=== PATIENT | female | born 1950 | race Caucasian/White ===

== ENCOUNTER 2019-06-09 17:48 | Emergency (ER) | payer MEDICARE, OTHER ==
[~2019-06-09] VITALS: Ht 154.9 cm; Wt 95.3 kg
[~2019-06-09 17:48] MED LIST: ASPIR 8181 MG PO; LISINOPRIL-HCT1 EAC1 PO; OMEPRAZOLE40 MG PO
--- OUTSIDE RECORDS SUMMARY | 2019-06-09 17:52 | XMS REPORT | Summary of Care ---
Author Author Jayda Campos M.A. Unknown Address Unknown Phone Unavailable Care Team Providers Care [employer] Clerk Name Role Phone PASTOR Damon, EVELYN Unavailable Unavailable TERRY Abreu, RUBEN Unavailable Unavailable SHANICE Chilel.OAngela, ANNA Unavailable Unavailable Andres Winters, Jayda Unavailable Unavailable PAUL N.P., MARIO Unavailable Unavailable [place]NA [place], FROILAN HALL Unavailable Unavailable SHANICE HICKEY AR, ANNA Unavailable [facility]available [facility]UL [facility], MARIO Roque Unavailable Unavailable SHOSHANA Abreu, FROILAN Ferguson Unavailable Unavailable Unavailable Functional Status Name Dates Details Functional status health issues are not documented Status: Name Dates Details Cognitive status health issues are not documented Status: Problems Name Dates Details Abnormal urine findings (791.9, R82.90) Status: Active Dermatitis (692.9, L30.9) Status: Active Acute upper respiratory infection (465.9, J06.9) Status: Active 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, Z01.419) Status: Active Visit for screening mammogram (V76.12, Z12.31) Status: Active Nevus, non-neoplastic (448.1, I78.1) Status: Active Menopausal and postmenopausal disorder (627.9, N95.9) Status: Active Flu vaccine need (V04.81, Z23) Status: Active Need for Tdap vaccination (V06.1, Z23) Status: Active Allergic rhinitis due to pollen (477.0, J30.1) Status: Active Cervical spine pain (723.1, M54.2) Status: Active Colon cancer screening (V76.51, Z12.11) Status: Active Dysphagia (787.20, R13.10) Status: Active Post-menopause (V49.81, Z78.0) Status: Active Depression screening (V79.0, Z13.31) Status: Active At moderate risk for fall (V15.88, Z91.81) Status: Active Encounter for mini-mental status examination Status: Active Right knee pain, unspecified chronicity (719.46, M25.561) Status: Active Localized primary osteoarthritis of lower leg, right (715.16, M17.11) Status: Active Left ankle sprain (845.00, S93.402A) Status: Active Closed fracture of left ankle with delayed healing, subsequent encounter (V54.19, S82.892G) Status: Active Closed trimalleolar fracture of left ankle, initial encounter (824.6, S82.852A) Status: Active Post surgical complication (998.9, T81.9XXA) Status: Active Unsteady gait (781.2, R26.81) Status: Active Ankle fracture, left, closed, initial encounter (824.8, S82.892A) Status: Active Low back pain (724.2, M54.5) Status: Active Cough (786.2, R05) Status: Active Closed left ankle fracture (824.8, S82.892A) Status: Active Acute bronchitis (466.0, J20.9) Status: Active Need for vaccination with 13-polyvalent pneumococcal conjugate vaccine (V03.82, Z23) Status: Active Obesity, Class III, BMI 40-49.9 (morbid obesity) (278.01, E66.01) Status: Active Need for hepatitis C screening test (V73.89, Z11.59) Status: Active Screening for breast cancer (V76.10, Z12.39) Status: Active Encounter for medication refill (V68.1, Z76.0) Status: Active Essential (primary) hypertension (401.9, I10) Status: Active Acid reflux disease (530.81, K21.9) Status: Active Allergic rhinitis, seasonal (477.9, J30.2) Status: Active Multiple nevi (216.9, D22.9) Status: Active Atypical mole (216.9, D22.9) Status: Active Need for shingles vaccine (V04.89, Z23) Status: Active Mixed hyperlipidemia (272.2, E78.2) Status: Active Medications Name Dates Details Lisinopril-hydroCHLOROthiazide 20-25 MG Oral Tablet TAKE 1 TABLET DAILY Quantity: 90 PAUL N.P., MARIO * Start : 22-Aug-2014 Active Omeprazole 40 MG Oral Capsule Delayed Release TAKE 1 CAPSULE DAILY * Quantity: 90 Refills: 1 PAUL N.P., MARIO * Start : 12-Jun-2016 Active Voltaren 1 % Transdermal Gel APPLY TO LOWER EXTREMITIES, 4 GM OF GEL TO AFFECTED AREA 4 TIMES DAILY. DO NOT APPLY MORE THAN 16 GM DAILY TO ANY ONE AFFECTED JOINT. * Quantity: 5 Refills: 3 RUBEN STEWART M.D. * Start : 02-Jan-2017 Active 100 GM Tube Wheelchair USE DIRECTED. DX: S82.892G * Quantity: 1 Refills: 0 BAUMANN P.A., EVELYN * Start : 11-Jun-2017 Active Diclofenac Sodium 1 % Transdermal Gel APPLY SPARINGLY TO AFFECTED AREA(S) ONCE DAILY * Quantity: 1 Refills: 2 YEH D.O., MILLICENT-FRANCESCA * Start : 10-Jun-2018 Active 100 GM Tube Azelastine HCl - 0.1 % Nasal Solution USE 1 TO 2 SPRAYS IN EACH NOSTRIL TWICE DAILY NEEDED. * Quantity: 1 Refills: 5 YEH D.O., MILLICENT-FRANCESCA * Start : 10-Jun-2018 Active 30 ML Bottle Montelukast Sodium 10 MG Oral Tablet TAKE 1 TABLET BY MOUTH EVERY DAY * Quantity: 90 Refills: 1 PAUL N.P., MARIO * Start : 29-Jun-2018 Active Allergies and Adverse Reactions Name Dates Details No Known Allergies (Allergy) Status: Active Past Medical History Name Dates Details History of Depression screening (V79.0, Z13.31) Status: Resolved History of essential hypertension (V12.59, Z86.79) Status: Resolved History of gastroesophageal reflux (GERD) (V12.79, Z87.19) Status: Resolved History of low back pain (V13.59, Z87.39) Status: Resolved Procedures Procedure Dates Details MA Digital Mammo Screening Oscar [id number] Date: 03-Mar-2019 History of Heart Valve Repair Completed Immunization Name Dates Details Fluzone Preservative Free 0.5 ML [facility] Lot #: [id number] on: 30-May-2015 Tdap (Adacel) Lot #: [id number] on: 15-Jun-2015 Fluzone Preservative Free 0.5 ML [facility] Lot #: [id number] on: 24-May-2016 Family History Name Dates Details Family history of Myocardial infarction (410.90, I21.9) Status: Active Name Dates Details Family history of multiple sclerosis (V17.2, Z82.0) Status: Active Social History Name Dates Details - Status: Name Dates Details Never smoker Vital Signs Date Test Result Details 4-Maq-581250:13 BP Systolic 127 mm[Hg] Status: Comments: Location: LUE; Position: Sitting BP Diastolic 74 mm[Hg] Status: Comments: Location: LUE; Position: Sitting Height 61 in Status: Weight 212.4375 lb Status: Body Mass Index Calculated 40.14 kg/m2 Status: Body Surface Area Calculated 1.94 m2 Status: Temperature 97.8 f Status: Comments: Method: Temporal Heart Rate 64 /min Status: Respiration Rate 16 /min Status: Physical Findings 3 Status: Comments: PHQ-9 Adult Depression Screening Physical Findings 0 Status: Comments: Alcohol Screen - How many times in the past yr have you had 5 (for M) or 4 (for F) or 4 (for all > 65yrs) or more drinks in a day? Results Date Description Value Details 8-Vil-681667:01 [[facility]] LIPID PANEL CHOLESTEROL, TOTAL 186 mg/dl (Normal) Range: <200 HDL CHOLESTEROL 51 mg/dl (Normal) Range: >50 TRIGLYCERIDES 98 mg/dl (Normal) Range: <150 LDL-CHOLESTEROL 115 {MG/DL__CAL} (Above high threshold) Comments: Reference range: <100 Desirable range <100 mg/dL for primary prevention; <70 mg/dL for patients with CHD or diabetic patients with > or=2 CHD risk factors. LDL-C is now calculated using the Kirill calculation, which is a validated novel method providing better accuracy than the Friedewald equation in the estimation of LDL-C. Adryan GEORGE et al. JES. 2013;310(19): 6973-6212 (http:/ /education.[employer].com/faq/GHN477) CHOL/HDLC RATIO 3.6 {CALC} (Normal) Range: <5.0 NON HDL CHOLESTEROL 135 {MG/DL__CAL} (Above high threshold) Range: <130 Comments: For patients with diabetes plus 1 major ASCVD risk factor, treating to a non-HDL-C goal of <100 mg/dL (LDL-C of <70 mg/dL) is considered a therapeutic option. [[facility]] MAGNESIUM MAGNESIUM 1.7 mg/dl (Normal) Range: 1.5-2.5 [[facility]] CMP W/EGFR GLUCOSE 96 mg/dl (Normal) Range: 65-99 Comments: Fasting reference interval UREA NITROGEN (BUN) 14 mg/dl (Normal) Range: 7-25 CREATININE 0.86 mg/dl (Normal) Range: 0.50-0.99 Comments: For patients >49 years of age, the reference limitfor Creatinine is approximately 13% higher for peopleidentified as -[place]. eGFR NON- 69 {ML/MIN/1.7} (Normal) Range: > OR=60 eGFR 80 {ML/MIN/1.7} (Normal) Range: > OR=60 BUN/CREATININE RATIO NOT APPLICABLE {CALC} Range: 6-22 SODIUM 139 mmol/L (Normal) Range: 135-146 POTASSIUM 4.2 mmol/L (Normal) Range: 3.5-5.3 CHLORIDE 102 mmol/L (Normal) Range: 98-110 CARBON DIOXIDE 27 mmol/L (Normal) Range: 20-32 CALCIUM 9.7 mg/dl (Normal) Range: 8.6-10.4 PROTEIN, TOTAL 6.7 g/dl (Normal) Range: 6.1-8.1 ALBUMIN 4.0 g/dl (Normal) Range: 3.6-5.1 GLOBULIN 2.7 {G/DL__CALC} (Normal) Range: 1.9-3.7 ALBUMIN/GLOBULIN RATIO 1.5 {CALC} (Normal) Range: 1.0-2.5 BILIRUBIN, TOTAL 0.4 mg/dl (Normal) Range: 0.2-1.2 ALKALINE PHSPHATASE 86 u/l (Normal) Range: 33-130 AST 16 u/l (Normal) Range: 10-35 ALT 11 u/l (Normal) Range: 6-29 [[facility]] URINALYSIS, COMPLETE W/REFLEX TO CULTURE COLOR YELLOW (Normal) Range: YELLOW APPEARANCE CLEAR (Normal) Range: CLEAR SPECIFIC GRAVITY 1.016 (Normal) Range: 1.001-1.035 PH 6.0 (Normal) Range: 5.0-8.0 GLUCOSE NEGATIVE (Normal) Range: NEGATIVE BILIRUBIN NEGATIVE (Normal) Range: NEGATIVE KETONES NEGATIVE (Normal) Range: NEGATIVE OCCULT BLOOD NEGATIVE (Normal) Range: NEGATIVE PROTEIN NEGATIVE (Normal) Range: NEGATIVE NITRITE NEGATIVE (Normal) Range: NEGATIVE LEUKOCYTE ESTERASE 2+ (Abnormal) Range: NEGATIVE WBC 10-20 {/HPF} (Abnormal) Range: < OR=5 RBC NONE SEEN {/HPF} (Normal) Range: < OR=2 SQUAMOUS EPITHELIAL CELLS 6-10 {/HPF} (Abnormal) Range: < OR=5 BACTERIA FEW {/HPF} (Abnormal) Range: NONE SEEN HYALINE CAST NONE SEEN {/LPF} (Normal) Range: NONE SEEN : [Q] REFLEXIVE URINE CULTURE REFLEXIVE URINE CULTURE CULTURE INDICATED - RESULTS TO FOLLOW :01 [[facility]] CBC (INCLUDES DIFF/PLT) WHITE BLOOD CELL COUNT 6.5 {Thousand/u} (Normal) Range: 3.8-10.8 RED BLOOD CELL COUNT 4.32 {Million/uL} (Normal) Range: 3.80-5.10 HEMAGLOBIN 11.5 g/dl (Below low threshold) Range: 11.7-15.5 HEMATOCRIT 35.7 % (Normal) Range: 35.0-45.0 MCV 82.6 fL (Normal) Range: 80.0-100.0 MCH 26.6 pg (Below low threshold) Range: 27.0-33.0 MCHC 32.2 g/dl (Normal) Range: 32.0-36.0 RDW 13.8 % (Normal) Range: 11.0-15.0 PLATELET COUNT 279 {Thousand/u} (Normal) Range: 140-400 MPV 10.7 fL (Normal) Range: 7.5-12.5 ABSOLUTE NEUTROPHILS 4316 {cells/uL} (Normal) Range: 0862-7179 ABSOLUTE LYMPHOCYTES 1489 {cells/uL} (Normal) Range: 850-3900 ABSOLUTE MONOCYTES 410 {cells/uL} (Normal) Range: 200-950 ABSOLUTE EOSINOPHILS 234 {cells/uL} (Normal) Range: 15-500 ABSOLUTE BASOPHILS 52 {cells/uL} (Normal) Range: 0-200 NEUTROPHILS 66.4 % (Normal) LYMPHOCYTES 22.9 % (Normal) MONOCYTES 6.3 % (Normal) EOSINOPHILS 3.6 % (Normal) BASOPHILS 0.8 % (Normal) : [[facility]] HEPATITIS C ANTIBODY HEPATITIS C ANTIBODY NON-REACTIVE (Normal) Range: NON-REACTIVE SIGNAL TO CUT-OFF 0.02 (Normal) Range: <1.00 Comments: HCV antibody was non-reactive. There is no laboratory evidence of HCV infection. In most cases, no further action is required. However,if recent HCV exposure is suspected, a test for HCV RNA(test code 25184) is suggested. For additional information please refer tohttp://education.[employer]/faq/RJN12j4(This link is being provided for informational/educational purposes only.) : [[facility]] TSH, 3RD GENERATION W/REFLEX TO FT4 TSH, 3RD GENERATION W/REFLEX TO FT4 1.32 {MIU/L} (Normal) Range: 0.40-4.50 : [[facility]] HEMOGLOBIN A1c HEMOGLOBIN A1c 5.4 {%_of_total} (Normal) Range: <5.7 Comments: For the purpose of screening for the presence ofdiabetes: <5.7% Consistent with the absence of diabetes5.7-6.4% Consistent with increased risk for diabetes (prediabetes)> or=6.5% Consistent with diabetes This assay result is consistent with a decreased riskof diabetes. Currently, no consensus exists regarding use ofhemoglobin A1c for diagnosis of diabetes in children. According to [place] Diabetes Association (ADA)guidelines, hemoglobin A1c <7.0% represents optimalcontrol in non- diabetic patients. Differentmetrics may apply to specific patient populations. Standards of Medical Care in Diabetes(ADA). : [[facility]] CULTURE, URINE, ROUTINE Comments: REPORT COMMENT:FASTING:YES CULTURE Comments: CULTURE, URINE, ROUTINE MICRO NUMBER: [id number] TEST STATUS: FINAL SPECIMEN SOURCE: URINE SPECIMEN QUALITY: ADEQUATE RESULT: No Growth Plan of Care Name Dates Details Planned Observations Planned Goals not documented Planned Encounters Appointment; MAXIMO SHARP M.D. On: 28-May-2019 15:00 Instructions Name Dates Details Instructions not documented Encounters Appointment; EVELYN BAUMANN P.A. Encounter Diagnosis: Problem not documented On: 30-May-2017 15:00 Appointment; EVELYN BAUMANN P.A. Encounter Diagnosis: Problem not documented On: 03-Jun-2017 10:00 Appointment; EVELYN BAUMANN P.A. Encounter Diagnosis: Problem not documented On: 10-Jun-2017 10:30 Appointment; CLAUDETTE GARCIA M.D. Encounter Diagnosis: Problem not documented On: 13-Jun-2017 14:45 Appointment; CLAUDETTE GARCIA M.D. Encounter Diagnosis: Problem not documented On: 16-Jun-2017 19:00 Appointment; CLAUDETTE GARCIA M.D. Encounter Diagnosis: Problem not documented On: 02-Jul-2017 15:45 Appointment; CLAUDETTE GARCIA M.D. Encounter Diagnosis: Problem not documented On: 01-Aug-2017 8:30 Appointment; CLAUDETTE GARCIA M.D. Encounter Diagnosis: Problem not documented On: 15-Aug-2017 9:30 Appointment; CLAUDETTE GARCIA M.D. Encounter Diagnosis: Problem not documented On: 20-Aug-2017 14:30 Appointment; CLAUDETTE GARCIA M.D. Encounter Diagnosis: Problem not documented On: 24-Sep-2017 15:45 Appointment; EVELYN BAUMANN P.A. Encounter Diagnosis: Problem not documented On: 20-Oct-2017 10:30 Appointment; EVELYN BAUMANN P.A. Encounter Diagnosis: Problem not documented On: 10-Nov-2017 14:00 Appointment; CLAUDETTE GARCIA M.D. Encounter Diagnosis: Problem not documented On: 19-Nov-2017 9:15 Appointment; CLAUDETTE GARCIA M.D. Encounter Diagnosis: Problem not documented On: 26-Nov-2017 10:15 Appointment; EVELYN BAUMANN P.A. Encounter Diagnosis: Problem not documented On: 06-May-2018 10:30 Appointment; ANNA PRASAD D.O. Encounter Diagnosis: Problem not documented On: 10-Jun-2018 14:45 Appointment; ANNA PRASAD D.O. Encounter Diagnosis: Problem not documented On: 29-Jun-2018 13:00 Appointment; MARIO MILLER NP Encounter Diagnosis: Problem not documented On: 03-Mar-2019 10:45
--- OUTSIDE RECORDS SUMMARY | 2019-06-09 17:52 | XMS REPORT ---
[facility] Address Unknown Phone Unavailable Care Team Providers Care Car Customizer Name Role Phone Chaya LOYD Unavailable Unavailable Problems This patient has no known problems. Allergies, Adverse Reactions, Alerts This patient has no known allergies or adverse reactions. Medications This patient has no known medications. Results Test Description Test Time Test Comments Text Results Atomic Results Result Comments CT CERVICAL SPINE WO [place] [id number] Patient Name: LOGAN CONTRERAS MR #: [id number] : 1950 Age/Sex: 66/F Req #: [id number] Adm Physician: Ordered by: KEVIN LOYD MD Report #: [id number] Location: ER Room/Bed: Procedure: [id number] CT/CT CERVICAL SPINE WO Exam Date: 06/16/17 Exam Time: 2357 REPORT STATUS: Signed History: Syncope Comparison studies: None Technique: Axial images were obtained from the brain and cervical spine. Coronal and sagittal images reconstructed from the axial data. Intravenous contrast: None Findings: Head CT: Scalp/skull: Incidental 3 mm calcified cyst in the left parietal scalp. Otherwise, no abnormalities. No fractures, blastic or lytic lesions. Brain sulci: Appropriate for age. Ventricles: Normal in size and configuration. No hydrocephalus. Extra-axial spaces: No masses. No fluid collections. Parenchyma: Subtle hypodensities in the supratentorial white matter are small vessel ischemic changes. No masses, hemorrhage, acute or chronic cortical vascular insults. Sellar/suprasellar region: No abnormalities. Craniocervical junction: Patent foramen magnum. No Chiari one malformation. Cervical spine CT: Airway: Patent. Fractures: None. Soft tissues: No gross abnormalities. Atlantoaxial articulation: Intact. Alignment: Straightening of the usual lordosis is probably positional. No scoliosis. Cervicomedullary junction: No abnormalities. Patent foramen magnum. Vertebrae: No infection or neoplasm. Degenerative changes: Mildly degenerated discs from C5 to T2. Foraminal stenosis, mild left at C4-5 due to facet and uncoarthrosis. Facet arthrosis on the right at C5-6 without foraminal stenosis. Patent spinal canal. Incidental findings: 9 mm calcified nodule in the right lobe of the thyroid, 2.2 cm noncalcified mass on the left. IMPRESSION: Head CT: No acute abnormalities. Mild supratentorial white matter small vessel ischemic changes. Cervical spine CT: 1. No acute abnormalities. 2. Cannot adequately evaluate for ligament, spinal cord and or vascular abnormalities. 3. Degenerative changes as described. 4. Incidental 2.2 cm noncalcified mass in the left lobe of the thyroid. 9 mm calcified nodule on the right. Recommend nonemergent thyroid ultrasound for further evaluation. Signed by: Dr. Shiva Rosario M.D. on 06/16/2017 12:39 AM Dictated By: SHIVA ROSARIO MD, MD Transcribed By: CRUZ on 06/16/1738 COPY TO: KEVIN LOYD MD CT BRAIN WO [place] [address] Patient Name: LOGAN CONTRERAS MR #: [id number] : 1950 Age/Sex: 66/F Req #: [id number] Adm Physician: Ordered by: KEVIN LOYD MD Report #: [id number] Location: ER Room/Bed: Procedure: [id number] CT/CT BRAIN WO Exam Date: 06/16/17 Exam Time: 2357 REPORT STATUS: Signed History: Syncope Comparison studies: None Technique: Axial images were obtained from the brain and cervical spine. Coronal and sagittal images reconstructed from the axial data. Intravenous contrast: None Findings: Head CT: Scalp/skull: Incidental 3 mm calcified cyst in the left parietal scalp. Otherwise, no abnormalities. No fractures, blastic or lytic lesions. Brain sulci: Appropriate for age. Ventricles: Normal in size and configuration. No hydrocephalus. Extra-axial spaces: No masses. No fluid collections. Parenchyma: Subtle hypodensities in the supratentorial white matter are small vessel ischemic changes. No masses, hemorrhage, acute or chronic cortical vascular insults. Sellar/suprasellar region: No abnormalities. Craniocervical junction: Patent foramen magnum. No Chiari one malformation. Cervical spine CT: Airway: Patent. Fractures: None. Soft tissues: No gross abnormalities. Atlantoaxial articulation: Intact. Alignment: Straightening of the usual lordosis is probably positional. No scoliosis. Cervicomedullary junction: No abnormalities. Patent foramen magnum. Vertebrae: No infection or neoplasm. Degenerative changes: Mildly degenerated discs from C5 to T2. Foraminal stenosis, mild left at C4-5 due to facet and uncoarthrosis. Facet arthrosis on the right at C5-6 without foraminal stenosis. Patent spinal shaw l. Incidental findings: 9 mm calcified nodule in the right lobe of the thyroid, 2.2 cm noncalcified mass on the left. IMPRESSION: Head CT: No acute abnormalities. Mild supratentorial white matter small vessel ischemic changes. Cervical spine CT: 1. No acute abnormalities. 2. Cannot adequately evaluate for ligament, spinal cord and or vascular abnormalities. 3. Degenerative changes as described. 4. Incidental 2.2 cm noncalcified mass in the left lobe of the thyroid. 9 mm calcified nodule on the right. Recommend nonemergent thyroid ultrasound for further evaluation. Signed by: Dr. Shiva Rosario M.D. on 06/16/2017 12:39 AM Dictated By: SHIVA ROSARIO MD, MD Transcribed By: CRUZ on 06/16/1738 COPY TO: KEVIN LOYD MD CHEST SINGLE (PORTABLE) [place] [address] Patient Name: LOGAN CONTRERAS MR #: [id number] : 1950 Age/Sex: 66/F Req #: [id number] Adm Physician: Ordered by: KEVIN LOYD MD Report #: [id number] Location: ER Room/Bed: Procedure: [id number] DX/CHEST SINGLE (PORTABLE) Exam Date: 06/16/17 Exam Time: 0002 REPORT STATUS: Signed CHEST SINGLE (PORTABLE), 06/15/2017 11:31 PM Technique: CHEST SINGLE (PORTABLE) Comparison: None available. Clinical history: Near syncope Findings: Unremarkable portable appearance of the heart, mediastinum, lungs and pleural spaces. Impression: 1. Lines/Tubes: None 2. No acute abnormality. Signed by: Dr Adarsh Fan MD on 06/16/2017 12:44 AM Dictated By: ADARSH FAN MD Transcribed By: CRUZ on 06/16/1743 COPY TO: KEVIN LOYD MD
[2019-06-09] MEDS ORDERED: MECLIZINE HCL 12.5 MG TAB PO ONE (18:15)
[2019-06-09] MEDS ORDERED: ASPIRIN 81 MG CHEW TAB PO ONE (18:15)
--- NOTE | 2019-06-09 18:54 | Diagnostic Imaging Report ---
Examination: Single AP view of the chest. COMPARISON: None. INDICATION: Hypertension DISCUSSION: Lines/tubes: None. Lungs: The lungs are well inflated and clear. No pneumonia or pulmonary edema. Pleura: No pleural effusion or pneumothorax. Heart and mediastinum: The heart and the mediastinum are unremarkable. Bones and soft tissues: No acute bony abnormalities. IMPRESSION: 1. No acute cardiopulmonary abnormalities. Signed by: Dr. Johnie Jacob M.D. on 06/09/2019 6:51 PM
--- NOTE | 2019-06-09 19:12 | Diagnostic Imaging Report ---
History: Headache, dizziness, high pressure Comparison studies: CT head 06/15/2017 Technique: Axial images were obtained from the skull base to the vertex. Coronal and sagittal reconstructions obtained from the axial data. Dose modulation, iterative reconstruction, and/or weight based adjustment of the mA/kV was utilized to reduce the radiation dose to as low as reasonably achievable. Findings: Scalp/skull: No abnormalities. No fractures, blastic or lytic lesions. Extra-axial spaces: No masses. No fluid collections. Brain sulci: Appropriate for age. Ventricles: Normal in size and configuration. No hydrocephalus. Parenchyma: Subtle hypodensities of the periventricular and deep white matter, most commonly seen with mild chronic microvascular ischemic changes. No masses, hemorrhage, acute or chronic cortical vascular insults. Sellar/suprasellar region: No abnormalities Craniocervical junction: Patent foramen magnum. No Chiari one malformation. IMPRESSION: No acute abnormalities . Signed by: DR Cale Mejias M.D. on 06/09/2019 7:09 PM
[2019-06-09 20:09] LABS: BASOPHILS # (AUTO) 0.1 (0.0-0.1); BASOPHILS % 0.8 % (0.0-1.0); EOSINOPHILS # (AUTO) 0.2 (0.0-0.4); HEMATOCRIT 39.3 % (34.2-44.1); HEMOGLOBIN 12.1 g/dL (12.0-16.0); LYMPHOCYTES # (AUTO) 1.7 (1.0-3.2); LYMPHOCYTES % 19.1 % (18.0-39.1); MEAN CORPUSCULAR HEMOGLOBIN 26.4 pg (28-32); MEAN CORPUSCULAR HGB CONC 30.8 g/dL (31-35); MEAN CORPUSCULAR VOLUME 85.6 fL (81-99); MONOCYTES # (AUTO) 0.5 (0.2-0.8); MONOCYTES % 5.9 % (4.4-11.3); NEUTROPHILS # (AUTO) 6.4 (2.1-6.9); NEUTROPHILS % 71.6 % (38.7-80.0); PLATELET COUNT 228 x10e3/uL (140-360); RED BLOOD COUNT 4.59 x10e6/uL (3.6-5.1); RED CELL DISTRIBUTION WIDTH 13.9 % (11.7-14.4)
[2019-06-09 20:26] LABS: ALANINE AMINOTRANSFERASE 11 IU/L (0-55); ALBUMIN 3.9 g/dL (3.5-5.0); ALBUMIN/GLOBULIN RATIO 1.1 (0.8-2.0); ALKALINE PHOSPHATASE 98 IU/L (40-150); ANION GAP 15.4 mmol/L (8-16); BLOOD UREA NITROGEN 15 mg/dL (7-26); BUN/CREATININE RATIO 16 (6-25); CALCIUM 9.6 mg/dL (8.4-10.2); CARBON DIOXIDE 23 mmol/L (22-29); CHLORIDE 100 mmol/L (98-107); CREATINE KINASE 72 IU/L (29-168); CREATININE, SERUM 0.94 mg/dL (0.57-1.11); EST GLOMERULAR FILTRATION RATE 59 ML/MIN (60-); GLUCOSE 104 mg/dL (74-118); MAGNESIUM 1.9 MG/DL (1.3-2.1); POTASSIUM 3.4 mmol/L (3.5-5.1); SODIUM 135 mmol/L (136-145)
[2019-06-09 20:41] LABS: BILIRUBIN,URINE NEGATIVE (NEGATIVE); CLARITY,URINE CLOUDY (CLEAR); COLOR,URINE YELLOW (YELLOW); KETONES,URINE NEGATIVE (NEGATIVE); LEUKOCYTE ESTERASE ,URINE SMALL (NEGATIVE); NITRITE,URINE NEGATIVE (NEGATIVE); PROTEIN,URINE DIPSTICK NEGATIVE (NEGATIVE); URINE UROBILINOGEN 1 mg/dL (0.2 - 1)
[2019-06-09 20:56] LABS: BACTERIA,URINE MANY /HPF; EPITHELIAL CELLS,URINE MANY /LPF
[2019-06-09 21:22] VITALS: BP 147/55
== END 2019-06-09 21:31 | disposition home or self-care (01) ==
LOC: ER 17:48
DX: R42 Dizziness and giddiness (principal); R11.0 Nausea; N30.90 Cystitis, unspecified without hematuria; I10 Essential (primary) hypertension; K21.9 Gastro-esophageal reflux disease without esophagitis
CPT/HCPCS: 36415; 70450; 71045; 80053; 81001; 82550; 82553; 83735; 83880; 84484; 85025; 93005; 99284; J8597

== ENCOUNTER 2022-01-07 10:33 | Observation (INO) | payer MEDICARE, OTHER ==
[~2022-01-07] VITALS: Ht 154.9 cm; Wt 95.3 kg
[2022-01-07] MEDS ORDERED: SODIUM CHLORIDE FLUSH 10 ML SYR IV PRN (11:00)
[2022-01-07] MEDS ORDERED: ASPIRIN 325 MG TAB PO ONE (11:00)
[2022-01-07 13:46] LABS: BASOPHILS # (AUTO) 0.1 (0.0-0.1); BASOPHILS % 0.7 % (0.0-1.0); EOSINOPHILS # (AUTO) 0.2 (0.0-0.4); EOSINOPHILS % 3.5 % (0.0-6.0); HEMATOCRIT 37.8 % (34.2-44.1); HEMOGLOBIN 11.7 g/dL (12.0-16.0); LYMPHOCYTES # (AUTO) 1.6 (1.0-3.2); LYMPHOCYTES % 23.2 % (18.0-39.1); MEAN CORPUSCULAR HEMOGLOBIN 27.5 pg (28-32); MEAN CORPUSCULAR VOLUME 88.9 fL (81-99); MONOCYTES # (AUTO) 0.4 (0.2-0.8); MONOCYTES % 6.3 % (4.4-11.3); NEUTROPHILS # (AUTO) 4.6 (2.1-6.9); NEUTROPHILS % 65.9 % (38.7-80.0); PLATELET COUNT 272 x10e3/uL (140-360); RED BLOOD COUNT 4.25 x10e6/uL (3.6-5.1); RED CELL DISTRIBUTION WIDTH 14.1 % (11.7-14.4)
[2022-01-07 13:56] LABS: INR 0.92; PROTHROMBIN TIME 13.2 seconds (11.9-14.5)
[2022-01-07 13:57] LABS: PARTIAL THROMBOPLASTIN TIME 29.2 seconds (23.8-35.5)
[2022-01-07 14:10] LABS: ALANINE AMINOTRANSFERASE 13 IU/L (0-55); ALBUMIN 3.6 g/dL (3.5-5.0); ALKALINE PHOSPHATASE 71 IU/L (40-150); ANION GAP 15.3 mmol/L (8-16); BLOOD UREA NITROGEN 13 mg/dL (7-26); BUN/CREATININE RATIO 16 (6-25); CALCIUM 9.4 mg/dL (8.4-10.2); CARBON DIOXIDE 25 mmol/L (22-29); CHLORIDE 104 mmol/L (98-107); CREATININE, SERUM 0.82 mg/dL (0.57-1.11); GLUCOSE 95 mg/dL (74-118); POTASSIUM 4.3 mmol/L (3.5-5.1); SODIUM 140 mmol/L (136-145)
[2022-01-07] MEDS ORDERED: ONDANSETRON HCL INJ 2MG/ML 2ML 2 MG/ML VIAL IV PRN (15:00)
[2022-01-07] MEDS ORDERED: ASPIRIN 81 MG CHEW TAB PO ONE (15:00)
[2022-01-07 17:19] VITALS: BP 138/60
[2022-01-07 17:32] VITALS: BP 138/60
[2022-01-07 20:00] VITALS: BP 145/61
[2022-01-07] MEDS ORDERED: MONTELUKAST SOD10 MG PO (20:02)
[2022-01-07] MEDS ORDERED: CENTRUM SILVER1 EAC5 PO (20:02)
[2022-01-07] MEDS ORDERED: CALCIUM CIT PO (20:02)
[2022-01-07] MEDS ORDERED: OMEGA-31000 MG PO (20:02)
[2022-01-07] MEDS ORDERED: CRESTOR5 MG PO (20:02)
[2022-01-07 20:09] LABS: CREATINE KINASE 59 IU/L (29-168)
[2022-01-07] MEDS ORDERED: ACETAMINOPHEN 325 MG TAB PO PRN (20:15)
[2022-01-07 21:00] VITALS: BP 145/61
[2022-01-07] MEDS ORDERED: SIMVASTATIN 20 MG TAB PO SCH (21:00)
[2022-01-08] VITALS: BP 136/48
[2022-01-08] MEDS ORDERED: TRAMADOL HCL 50 MG TAB PO PRN
[2022-01-08] MEDS: METOPROLOL TARTRATE 25 MG TAB PO SCH ×2 (00:45→08:39)
[2022-01-08] MEDS: LOSARTAN POTASSIUM 25 MG TAB PO SCH ×2 (00:45→08:39)
[2022-01-08] MEDS ORDERED: DOCUSATE SODIUM 100 MG CAP PO PRN (00:45)
[2022-01-08 02:33] LABS: AMPHETAMINES SCREEN,URINE NEGATIVE (NEGATIVE); BENZODIAZEPINES SCREEN,URINE NEGATIVE (NEGATIVE); PHENCYCLIDINE SCREEN,URINE NEGATIVE (NEGATIVE)
[2022-01-08 04:00] VITALS: BP 140/48
[2022-01-08 06:19] LABS: BASOPHILS # (AUTO) 0.1 (0.0-0.1); BASOPHILS % 0.9 % (0.0-1.0); EOSINOPHILS # (AUTO) 0.2 (0.0-0.4); EOSINOPHILS % 4.5 % (0.0-6.0); HEMATOCRIT 31.9 % (34.2-44.1); LYMPHOCYTES # (AUTO) 1.6 (1.0-3.2); LYMPHOCYTES % 30.7 % (18.0-39.1); MEAN CORPUSCULAR HEMOGLOBIN 27.2 pg (28-32); MEAN CORPUSCULAR HGB CONC 31.3 g/dL (31-35); MEAN CORPUSCULAR VOLUME 86.7 fL (81-99); MONOCYTES # (AUTO) 0.4 (0.2-0.8); MONOCYTES % 7.3 % (4.4-11.3); NEUTROPHILS % 56.4 % (38.7-80.0); PLATELET COUNT 239 x10e3/uL (140-360); RED BLOOD COUNT 3.68 x10e6/uL (3.6-5.1); RED CELL DISTRIBUTION WIDTH 13.8 % (11.7-14.4)
[2022-01-08 07:16] LABS: ANION GAP 13.2 mmol/L (8-16); CALCIUM 8.6 mg/dL (8.4-10.2); CREATININE, SERUM 0.77 mg/dL (0.57-1.11); POTASSIUM 4.2 mmol/L (3.5-5.1)
[2022-01-08 08:26] VITALS: BP 138/57
[2022-01-08] MEDS ORDERED: ASPIRIN 81 MG ENTERIC COATED PO SCH (09:00)
[2022-01-08] MEDS ORDERED: COZAAR25 MG PO (10:44)
[2022-01-08] MEDS ORDERED: LOPRESSOR25 MG PO (10:44)
[2022-01-08] MEDS ORDERED: ASPIRIN EC81 MG PO (10:44)
[2022-01-08] MEDS ORDERED: ONDANSETRON HCL 4 MG ORAL DISINTEGRATING TAB PO PRN (12:30)
[2022-01-08 12:52] VITALS: BP 133/63
== END 2022-01-08 15:11 | disposition home or self-care (01) ==
LOC: ER 10:55 → ERHOLD 15:02 → MED/SURG3 16:04
PROVIDERS: ADMIT Internal Medicine; ATTEND Internal Medicine
DX: I16.1 Hypertensive emergency (principal); E66.01 Morbid (severe) obesity due to excess calories; Z68.39 Body mass index [BMI] 39.0-39.9, adult; R07.89 Other chest pain; E78.5 Hyperlipidemia, unspecified; Z20.822 Contact with and (suspected) exposure to COVID-19
CPT/HCPCS: 36415 ×2; 70450; 71045; 80048; 80053; 80061; 80307; 82550 ×2; 82553 ×2; 83036; 84484 ×2; 85025 ×2; 85610; 85730; 93005; 93306; 94760; G0378 ×2; U0002

== ENCOUNTER → 2022-02-18 | Outpatient (CLI) | payer MEDICARE ==
[~2022-02-18] MED LIST changes: +AMLODIPINE BESYL5 MG PO; +ASPIRIN EC81 MG PO; +BUSPIRONE HCL5 MG PO; +CALCIUM CIT PO; +CENTRUM SILVER1 EAC5 PO; +COZAAR25 MG PO; +CRESTOR5 MG PO; +LOPRESSOR25 MG PO; +MONTELUKAST SOD10 MG PO; +OMEGA-31000 MG PO; +SERTRALINE HCL25 MG PO
[2022-02-18 14:27] LABS: BASOPHILS # (AUTO) 0.1 (0.0-0.1); BASOPHILS % 0.8 % (0.0-1.0); EOSINOPHILS # (AUTO) 0.3 (0.0-0.4); EOSINOPHILS % 3.9 % (0.0-6.0); HEMATOCRIT 36.9 % (34.2-44.1); HEMOGLOBIN 11.6 g/dL (12.0-16.0); LYMPHOCYTES # (AUTO) 1.6 (1.0-3.2); LYMPHOCYTES % 20.9 % (18.0-39.1); MEAN CORPUSCULAR HEMOGLOBIN 27.2 pg (28-32); MEAN CORPUSCULAR HGB CONC 31.4 g/dL (31-35); MEAN CORPUSCULAR VOLUME 86.4 fL (81-99); MONOCYTES # (AUTO) 0.6 (0.2-0.8); MONOCYTES % 8.2 % (4.4-11.3); NEUTROPHILS # (AUTO) 4.9 (2.1-6.9); NEUTROPHILS % 66.1 % (38.7-80.0); PLATELET COUNT 264 x10e3/uL (140-360); RED BLOOD COUNT 4.27 x10e6/uL (3.6-5.1); RED CELL DISTRIBUTION WIDTH 14.1 % (11.7-14.4)
[2022-02-18 14:44] LABS: INR 0.98; PROTHROMBIN TIME 13.9 seconds (11.9-14.5)
[2022-02-18 14:48] LABS: ALANINE AMINOTRANSFERASE 14 IU/L (0-55); ALBUMIN 3.9 g/dL (3.5-5.0); ALBUMIN/GLOBULIN RATIO 1.1 (0.8-2.0); ALKALINE PHOSPHATASE 66 IU/L (40-150); ANION GAP 15.1 mmol/L (8-16); BLOOD UREA NITROGEN 16 mg/dL (7-26); BUN/CREATININE RATIO 18 (6-25); CALCIUM 9.3 mg/dL (8.4-10.2); CARBON DIOXIDE 23 mmol/L (22-29); CHLORIDE 103 mmol/L (98-107); CHOL/HDL RATIO 3.3 (3.0-3.6); CHOLESTEROL 122 MD/DL (0-199); CREATININE, SERUM 0.89 mg/dL (0.57-1.11); GLUCOSE 97 mg/dL (74-118); HDL CHOLESTEROL 37 MG/DL (40-60); LDL CHOLESTEROL 72 MG/DL (60-130); POTASSIUM 4.1 mmol/L (3.5-5.1); SODIUM 137 mmol/L (136-145); TRIGLYCERIDES 65 MG/DL (0-149)
== END ==
LOC: LAB 14:00 → EDSTATUS 02-21 09:00
PROVIDERS: ATTEND Internal Medicine Cardiovascular Disease
DX: Z01.812 Encounter for preprocedural laboratory examination (principal); I25.10 Atherosclerotic heart disease of native coronary artery without angina pectoris
CPT/HCPCS: 0223U; 36415; 80053; 80061; 85025; 85610

== ENCOUNTER → 2022-03-07 | Day surgery (SDC) | payer MEDICARE ==
[2022-03-04 12:00] LABS: BASOPHILS # (AUTO) 0.1 (0.0-0.1); BASOPHILS % 0.9 % (0.0-1.0); EOSINOPHILS # (AUTO) 0.4 (0.0-0.4); EOSINOPHILS % 5.5 % (0.0-6.0); HEMATOCRIT 36.8 % (34.2-44.1); HEMOGLOBIN 11.4 g/dL (12.0-16.0); LYMPHOCYTES # (AUTO) 1.5 (1.0-3.2); LYMPHOCYTES % 21.6 % (18.0-39.1); MEAN CORPUSCULAR HEMOGLOBIN 27.1 pg (28-32); MEAN CORPUSCULAR VOLUME 87.4 fL (81-99); MONOCYTES # (AUTO) 0.5 (0.2-0.8); MONOCYTES % 7.8 % (4.4-11.3); NEUTROPHILS # (AUTO) 4.5 (2.1-6.9); NEUTROPHILS % 63.9 % (38.7-80.0); PLATELET COUNT 258 x10e3/uL (140-360); RED BLOOD COUNT 4.21 x10e6/uL (3.6-5.1); RED CELL DISTRIBUTION WIDTH 13.8 % (11.7-14.4)
[2022-03-04 12:10] LABS: INR 0.92; PROTHROMBIN TIME 13.2 seconds (11.9-14.5)
[2022-03-04 12:20] LABS: ALANINE AMINOTRANSFERASE 14 IU/L (0-55); ALBUMIN 3.8 g/dL (3.5-5.0); ALKALINE PHOSPHATASE 71 IU/L (40-150); ANION GAP 12.9 mmol/L (8-16); BLOOD UREA NITROGEN 14 mg/dL (7-26); BUN/CREATININE RATIO 17 (6-25); CALCIUM 9.4 mg/dL (8.4-10.2); CARBON DIOXIDE 26 mmol/L (22-29); CHLORIDE 104 mmol/L (98-107); CHOL/HDL RATIO 3.2 (3.0-3.6); CHOLESTEROL 129 MD/DL (0-199); CREATININE, SERUM 0.83 mg/dL (0.57-1.11); GLUCOSE 101 mg/dL (74-118); HDL CHOLESTEROL 40 MG/DL (40-60); LDL CHOLESTEROL 74 MG/DL (60-130); POTASSIUM 4.9 mmol/L (3.5-5.1); SODIUM 138 mmol/L (136-145); TRIGLYCERIDES 76 MG/DL (0-149)
[~2022-03-07] VITALS: Ht 154.9 cm; Wt 98.0 kg
[2022-03-07] VITALS (13 sets, daily range): BP systolic 146–175; BP diastolic 41–85
[~2022-03-07] MED LIST changes: +FENTANYL CITRATE/PF 100MCG/2 ML INJ ONE; +HEPARIN SOD (PORCINE) 1000 UNIT/ML 30ML ONE; +MIDAZOLAM HCL 2 MG/2 ML VIAL ONE; +NITROGLYCERIN/D5W 200 MCG/ML 250 ML ONE; +SODIUM CHLORIDE 0.9% 1000ML 1,000 ML ONE; +VERAPAMIL HCL 2.5 MG/ML 2 ML VIAL ONE
== END | disposition home or self-care (01) ==
LOC: CATH LAB 06:43
PROVIDERS: ATTEND Internal Medicine Cardiovascular Disease
DX: I25.10 Atherosclerotic heart disease of native coronary artery without angina pectoris (principal); I10 Essential (primary) hypertension; R94.39 Abnormal result of other cardiovascular function study; Z01.812 Encounter for preprocedural laboratory examination; Z20.822 Contact with and (suspected) exposure to COVID-19; Z79.82 Long term (current) use of aspirin; Z79.899 Other long term (current) drug therapy
CPT/HCPCS: 0223U; 36415; 76937; 80053; 80061; 85025; 85610; 93458; C1887; J1644; J2250; J3010; J7030; 99152; 99153